=== PATIENT | male | born 2005 | race Hispanic/Latino ===

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

== ENCOUNTER 2025-01-09 18:41 | Emergency (ER) | payer SELFPAY ==
[~2025-01-09] VITALS: Ht 175.3 cm; Wt 129.3 kg
[~2025-01-09 18:41] MED LIST: ULTRAM 50MG50 MG PO
[2025-01-09] MEDS: IBUPROFEN 600 MG TAB PO STA (20:03)
[2025-01-09 21:20] VITALS: PULSE 80; RESP 16; TEMP 99
[2025-01-09 21:26] VITALS: BP 136/87; PULSE 80; RESP 18; O2SAT 100
== END 2025-01-09 21:30 | disposition home or self-care (01) ==
LOC: ER 19:37
DX: M25.571 Pain in right ankle and joints of right foot (principal); S93.491A Sprain of other ligament of right ankle, initial encounter; X50.1XXA Overexertion from prolonged static or awkward postures, initial encounter; Y93.K1 Activity, walking an animal; Y92.89 Other specified places as the place of occurrence of the external cause
CPT/HCPCS: 99284